=== PATIENT | female | born 1985 | race Caucasian/White ===

== ENCOUNTER 2016-08-11 18:06 | Observation (INO) | payer SELFPAY ==
[2016-08-11] MEDS ORDERED: NS 0.9% 1000 ML* 1,000 ML IV ONE (20:09)
[2016-08-11] MEDS ORDERED: ceFOXitin 2 GM IVPREMIX* 2 GM/50 ML BAG IVPB ONE (20:09)
[2016-08-11 20:10] LABS: Hematocrit 41 % (35-47); Hemoglobin 13.8 g/dl (12.0-16.0); Mean Corpuscular HGB Conc 33 g/dl (31-36); Mean Corpuscular Hemoglobin 31 pg (27-31); Mean Corpuscular Volume 91 fL (80-97); Mean Platelet Volume 8 um3 (7.4-10.4); Red Blood Count 4.52 10^6/ul (4.0-5.4); Red Cell Distribution Width 13 % (10.5-15); White Blood Count 20.1 10^3/ul (3.5-10.8)
[2016-08-11 20:11] LABS: Manual Entry Verification DOM0004; UR Preg Internal Control QC Line Present; Urine Bilirubin Negative (Negative); Urine Glucose Negative (Negative); Urine Nitrite Negative (Negative)
[2016-08-11 20:24] LABS: Albumin 4.6 g/dL (3.2-5.2); BUN/Creatinine Ratio 9.3 (8-20); Calcium 9.4 mg/dL (8.6-10.3); EGFR African American 99.6 (>60); EGFR Non-African American 77.5 (>60); Globulin 2.9 g/dL (2-4); Potassium 3.6 mmol/L (3.5-5.0); Total Protein 7.5 g/dL (6.4-8.9)
[2016-08-11] MEDS ORDERED: Ondansetron INJ* 2 MG/ML VIAL IV ONE (20:46)
[2016-08-11] MEDS ORDERED: Morphine INJ* 2 MG/ML 1 ML SYRINGE IV ONE (20:46)
[2016-08-11] MEDS ORDERED: Iohexol 300* (CONTRAST) 10 ML SDV IV ONE (22:38)
--- NOTE | 2016-08-11 23:05 | RAD ---
Indication: Right lower quadrant pain. Contrast: Administered 93.0 ml of OMNIPAQUE 300 mgi/ml CT of the abdomen and pelvis was performed after oral and IV contrast administration. Coronal and sagittal reconstructed images were obtained. Lung bases demonstrate no pleural fluid, nodules or masses. Heart is of normal size without evidence of pericardial effusion. Liver is normal in size. No focal lesions or intrahepatic ductal dilatation is noted. Spleen is normal in size. Pancreas demonstrates no mass or pancreatic duct dilatation. The common duct is not dilated. The gallbladder demonstrates no calcified gallstones. No pericholecystic fluid or wall thickening is identified. No adrenal masses noted. The kidneys demonstrate symmetric nephrograms. No hydronephrosis is noted. No dilated loops of bowel are noted. The uterus and ovaries are unremarkable. The urinary bladder is otherwise unremarkable. There is a tubular fluid-filled structure with infiltration of FAT overlying the right psoas muscle. This is retrocecal in nature and this is consistent with appendicitis. IMPRESSION: There is likely a tubular fluid-filled structure overlying the right psoas margin which likely represents appendicitis with infiltration of fat. This is retrocecal in nature. No other masses or fluid collections are noted.
[2016-08-11] MEDS ORDERED: Morphine INJ* 4 MG/ML 1 ML SYRINGE IV ONE (23:31)
[2016-08-12] MEDS ORDERED: Metoclopramide IV* 5 MG/ML 2 ML VIAL IV PRN (00:57)
[2016-08-12] MEDS ORDERED: Piperac/Tazob 3.375 gm in NS* 3.375 GM/100 ML BAG IVPB ONE (01:00)
[2016-08-12] MEDS: NS 0.9% 1000 ML* 1,000 ML IV SCH ×2 (01:40→10:20)
[2016-08-12] MEDS: Piperac/Tazob 3.375 gm in NS* 3.375 GM/100 ML BAG IVPB SCH ×2 (04:32→13:18)
[2016-08-12] MEDS: Morphine INJ* 2 MG/ML 1 ML SYRINGE IV PRN ×3 (04:37→10:25)
--- NOTE | 2016-08-12 09:02 | HP ---
DATE OF ADMISSION: 08/11/16 PATIENT OF: Dr. Salinas Rendon (dictated by NEETA Coulter) REASON FOR ADMISSION: Abdominal pain. HISTORY OF PRESENT ILLNESS: Freda is a pleasant 30-year-old female who was admitted to the hospital last night with one-day history of worsening abdominal pain. She notes that she was in her usual state of health until about 11 o' clock yesterday morning when she suddenly experienced worsening umbilical pain. She described it as a dull, aching pain with sharp episodes, initially localized to the periumbilical area and then gradually shifted to the right lower quadrant. She reports that the pain has gotten progressively worse with associated nausea and dry heaves, but denied any vomiting or changes in bowel habits. She went to the emergency room last night and had laboratory workup that revealed leukocytosis with white count of 20,000, as well as a CT scan consistent with acute appendicitis. Given her ongoing symptoms, she was admitted overnight for IV fluid hydration and antibiotics in anticipation to undergo an appendectomy on the following day. PAST MEDICAL HISTORY: Essentially unremarkable. She denies any history of heart, lung, liver or kidney disease. She notes having two episodes of spontaneous pneumothorax in the past, one of which needed a chest tube. However , she did not need any thoracic surgery to follow up. PAST SURGICAL HISTORY: None. CURRENT MEDICATIONS: She takes no medications at home. ALLERGIES: She denies any drug allergies. FAMILY HISTORY: Non-contributory. SOCIAL HISTORY: Patient is with two kids. 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 She is a former smoker who quit two years ago, and she drinks alcohol on occasions REVIEW OF SYSTEMS: See HPI; otherwise, negative. She denies any fever, chills or night sweats or recent weight loss. No headache, dizziness, blurred vision. No chest pain, shortness of breath or cough. She reports abdominal pain with associated nausea, but denies any vomiting or changes in the bowel habits. No dysuria, hematuria, or urinary frequency. PHYSICAL EXAMINATION GENERAL: She is a pleasant, healthy-appearing female who appears comfortable and in no acute distress or discomfort. VITAL SIGNS: Vitals reveal temperature of 97.9, pulse 57, respirations 16, blood pressure 91/46, and O2 sat of 98% on room air. HEENT: Sclerae anicteric. PERRLA. EOMs intact. Oropharynx is pink, moist, with no exudate. NECK: Supple. Trachea midline. No cervical adenopathy, thyromegaly, or JVD. LUNGS: Clear to auscultation bilaterally. HEART: Regular rate and rhythm. Normal S1 and S2 without rubs, murmurs, or gallops. BACK: With normal curvature. No CVA tenderness. BREAST EXAM: Deferred at this time. ABDOMEN: Soft and nondistended. Moderate right lower quadrant tenderness noted with focal tenderness noted at McBurney's point. There is slight guarding , but no rigidity, and there is also moderate rebound tenderness. There are no hernias, masses or hepatosplenomegaly. EXTREMITIES: Without cyanosis, clubbing, or edema. NEUROLOGIC: Grossly intact. RECTAL EXAM: Deferred at this time. LABORATORY DATA: As mentioned, patient had CBC last night with white count of 20,000, hemoglobin 13.8, hematocrit 41, and platelets 277. Chemistry - sodium 136, potassium 3.6, chloride 101, CO2 28, BUN 8, creatinine 0.8, and glucose 102. Her LFTs and lipase were essentially within normal limits. ACCESSORY DIAGNOSTIC DATA: Patient had a CT scan of the abdomen and pelvis that revealed a tubular structure, fluid filled, lying retrocecally, representing acute appendicitis with no other masses, abscess formation or fluid collection. ASSESSMENT: A 30-year-old female with signs and symptoms as well as CT scan findings consistent with acute appendicitis. PLAN: I went on and discussed with the patient the findings of her physical exam and CT scan report. The rationale, indications, risks and benefits of proceeding with a laparoscopic appendectomy were discussed in detail with her today. Risks include, but are not limited to infection, bleeding, or injury to adjacent structures. She seems to understand, and consents to go forth with the surgery to be performed later this morning. She has been NPO and received IV fluid and prophylactic antibiotics. She will be taken to the operating room later today in anticipation for a laparoscopic appendectomy. NEETA HUTCHINSON [id number]/[facility] #: [id number] [facility]ENTERHolland
[2016-08-12] MEDS ORDERED: Bupivacaine 0.25% EPI 200,000* 30 ML SDV ONE (11:38)
[2016-08-12] MEDS ORDERED: Propofol* 10 MG/ML 20 ML BTL IV PUSH ONE (12:11)
[2016-08-12] MEDS ORDERED: Lidocaine 2% PF* 5 ML VIAL ONE (12:11)
[2016-08-12] MEDS ORDERED: Succinylcholine* 20 MG/ML 10 ML VIAL ONE (12:11)
[2016-08-12] MEDS ORDERED: fentaNYL* 50 MCG/ML 2 ML VIAL (100 MCG VIAL) ONE ×4 (12:11→14:24)
[2016-08-12] MEDS ORDERED: Atropine 1MG/ML INJ* 1 ML VIAL ONE (12:48)
[2016-08-12] MEDS ORDERED: DiMENhydriNATE IV* 50 MG/ML VIAL IV PUSH PRN (12:50)
[2016-08-12] MEDS ORDERED: Ketorolac INJ* 30 MG/ML 1 ML VIAL IV PRN (12:50)
[2016-08-12] MEDS ORDERED: Ondansetron INJ* 2 MG/ML VIAL IV PRN (12:50)
[2016-08-12] MEDS ORDERED: Ketorolac INJ* 30 MG/ML 1 ML VIAL ONE (13:12)
[2016-08-12] MEDS: fentaNYL* 50 MCG/ML 2 ML VIAL (100 MCG VIAL) IV PRN ×5 (13:12→14:24)
--- NOTE | 2016-08-12 13:12 | SURGPN ---
Brief Operative Note - Surgery Procedures: Procedures CL FX REDUC-RADIUS/ULNA (12/14/94) INJECT/INFUSE NEC (01/31/13) 08/12/16 Op Note Pre-op dx: appendicitis Post-op dx: same Procedure: laparoscopic appendectomy Surgeon: Sebastian Asst: none EBL: 3 cc Complications: ~10 seconds of asystole upon insufflation of abdomen resolved with releasing the gas and re-insufflating to lesser pressure. SCDs on during case. Abx: on therapeutic Zosyn pre-op Pt. tolerated procedure well and was transferred to in a stable condition. RIAFostjaylin
[2016-08-12] MEDS ORDERED: oxyCODONE/Acetamin 5/325 MG* TAB ONE ×2 (13:32→13:55)
[2016-08-12] MEDS: oxyCODONE/Acetamin 5/325 MG* TAB PO PRN ×2 (13:33→13:56)
[2016-08-12] MEDS ORDERED: HYDROmorphone* 1 MG/ML 1 ML SYR ONE (14:57)
[2016-08-12] MEDS: HYDROmorphone* 1 MG/ML 1 ML SYR IV PRN ×2 (15:00→15:12)
[2016-08-12 15:47] VITALS: BP 100/55
--- NOTE | 2016-08-13 02:27 | OP ---
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 PRE-OP DIAGNOSIS: Appendicitis. POST-OP DIAGNOSIS: Appendicitis. OPERATIVE PROCEDURE: Laparoscopic appendectomy. INDICATIONS: Ms. Laird is a 30-year-old female who presented to the emergency room with signs and symptoms consistent with appendicitis and had this confirmed with CAT scan. [facility] and brought to the operating room. DESCRIPTION OF PROCEDURE: She was placed on the OR table in a supine position and given general ane sthesia. The abdomen was then prepped and draped in the usual sterile fashion. After infiltrating with local anesthetic, an incision was made in the infraumbilical area. Subcutaneous tissue was div ided bluntly. The fascia was grasped and incised and a 0 Biosyn stitch placed on either side of the fascial incision. A trocar was inserted into the abdomen and the abdomen was insufflated. At this point, it was noted that she had a few seconds of asystole on the monitor, so the abdomen was deflat ed. The port was removed and she was allowed to recover. She recovered adequately and the port was then reinserted and the abdomen again insufflated, but to a lesser pressure of 10 rather than 15. A n incision was made after infiltrating with local anesthetic in the suprapubic area and under direct visualization, a port was inserted here without difficulty. A second instrument port was inserted in the left flank after infiltrating with local anesthetic and under direct visualization. The cecu m was rotated medially with instruments and this exposed the acutely inflamed appendix. It was gras ped, its base was cleared, and an Endo GUIDO stapler was fired across the base of the appendix. A sec ond fire was fired across the mesoappendix. The appendix was placed into the EndoCatch bag and with drawn from the abdomen through the infraumbilical port site. A brief inspection of the rest of the abdomen revealed no obvious abnormalities. The liver and gallbladder appeared normal. The small an d large intestine that were seen appeared normal and the uterus appeared normal. A small amount of fluid in the pelvis was absorbed with 4x4 gauze, which was withdrawn from the abdomen. All ports we re then withdrawn under direct visualization and the previously placed 0 Biosyn was attempted to be used to close the fascia of the infraumbilical port site, but it broke, so another 0 Biosyn was used to close the fascia of the infraumbilical port site. 4-0 Biosyn was used to close the skin of all incisions. Steri-Strips were applied. All sponge and instrument counts were correct. The patient t olerated the procedure well and was transferred to Recovery in stable condition. [id number]/[facility] #: [id number]
--- NOTE | 2016-08-13 15:22 | ED ---
Elvira Feldman Alok, scribed for Zi Carrero MD on 08/11/16 at 2013 . Abdominal Pain/Female - HPI Summary HPI Summary: 30 y/o female presents to the ED with abd pain since 1100 while at work today. Pt states that pain began in periumbilical and radiated to RLQ throughout the day. Pain has been worsening throughout the day. Her pain is currently at a 3 out of 10 in severity and worsens with bumps/motion. Pt adds feelings of nausea earlier today which have subsided since. Pt denies any back pain, fever, diaphoresis, chills, or vomiting. 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 Pt last drank water a few minutes ago and had only eaten crackers today. 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 Pt just quit smoking tobacco 1 week ago. Pt denies any PSHx besides a chest tube 4 years ago for a collapsed lung. - History of Current Complaint Chief Complaint: EDAbdPain Stated Complaint: RT SIDED ABD PAIN Time Seen by Provider: 08/11/16 19:44 Hx Obtained From: Patient Hx Last Menstrual Period: IMPLANT, DOESN'T GET ?: No Onset/Duration: Gradual Onset, Lasting Hours, Still Present Timing: Constant Severity Initially: Moderate Severity Currently: Moderate Pain Intensity: 3 Pain Scale Used: 0-10 Numeric Location: Umbilical Radiates: Yes Radiates to: RLQ Character: Sharp Aggravating Factor(s): Movement Alleviating Factor(s): Nothing Associated Signs and Symptoms: Positive: Nausea. Negative: Diaphoresis, Fever, Back Pain, Urinary Symptoms, Vomiting Allergies/Adverse Reactions: Allergies Allergy/AdvReac Type Severity Reaction Status Date / Time No Known Allergies Allergy Verified 08/13/16 10:55 PMH/Surg Hx/FS Hx/Imm Hx Endocrine/Hematology History: Denies: Hx Anticoagulant Therapy, Hx Diabetes, Hx Thyroid Disease Cardiovascular History: Denies: Hx Congestive Heart Failure, Hx Hypertension, Hx Pacemaker/ICD Respiratory History: Denies: Hx Asthma, Hx Chronic Obstructive Pulmonary Disease (COPD) GI History: Denies: Hx Ulcer History: Denies: Hx Kidney Stones, Hx Renal Disease Sensory History: Reports: Hx Contacts or Glasses Denies: Hx Cataracts Opthamlomology History: Reports: Hx Contacts or Glasses Denies: Hx Cataracts Neurological History: Denies: Hx Dementia, Hx Seizures Psychiatric History: Reports: Hx Anxiety, Hx Eating Disorder, Hx Depression, Hx Inpatient Treatment, Hx Community Mental Health Tx, Hx Substance Abuse Denies: Hx of Violent Episodes Against Others - Surgical History Surgery Procedure, Year, and Place: CHEST TUBE Infectious Disease History: No Infectious Disease History: Denies: Hx Hepatitis, Hx Human Immunodeficiency Virus (HIV), Traveled Outside the [place] in Last 30 Days - Family History Known Family History: Negative: Blood Disorder - Social History Occupation: Unemployed Lives: With Family - Mother Alcohol Use: Rare Substance Use Type: Reports: None Substance Use Comment - Amount & Last Used: almost 6 months Hx Tobacco Use: Yes Smoking Status (MU): Light Every Day Tobacco Smoker Type: Cigarettes Amount Used/How Often: 1/2 PPD Review of Systems Negative: Fever, Chills, Skin Diaphoresis Negative: Erythema Negative: Sore Throat Negative: Chest Pain Negative: Shortness Of Breath, Cough Positive: Abdominal Pain - Umbilical and RLQ, Nausea. Negative: Vomiting Negative: dysuria, hematuria Negative: Myalgia, Edema, Other - Back Pain Negative: Rash Neurological: Other - Negative: Dizziness All Other Systems Reviewed And Are Negative: Yes Physical Exam - Summary Physical Exam Summary: Constitutional: Well-developed, Well-nourished, Alert. (-) Distressed Skin: Warm, Dry HENT: Normocephalic; Atraumatic Eyes: Conjunctiva normal Neck: Musculoskeletal ROM normal neck. (-) JVD, (-) Stridor, (-) Tracheal deviation Cardio: Rhythm regular, rate normal, Heart sounds normal; Intact distal pulses; The pedal pulses are 2+ and symmetric. Radial pulses are 2+ and symmetric. (-) Murmur Pulmonary/Chest wall: Effort normal. (-) Respiratory distress, (-) Wheezes, (-) Rales Abd: Soft, RLQ tenderness, (-) Distension, (-) Guarding, (-) Rebound Musculoskeletal: (-) Edema Lymph: (-) Cervical adenopathy Neuro: Alert, Oriented x3 Psych: Mood and affect Normal Triage Information Reviewed: Yes Vital Signs On Initial Exam: Initial Vitals Temp Pulse Resp BP Pulse Ox 98.3 F 70 20 101/55 100 08/11/16 18:12 08/11/16 18:12 08/11/16 18:12 08/11/16 18:12 08/11/16 18:12 Vital Signs Reviewed: Yes - [place]rod Coma Scale Coma Scale Total: 15 Diagnostics - Vital Signs Vital Signs Temp Pulse Resp BP Pulse Ox 08/11/16 19:38 98.4 F 66 18 108/65 100 08/11/16 18:12 98.3 F 70 20 101/55 100 - Laboratory Lab Results: Lab Results 08/11/16 08/11/16 Range/Units 20:00 20:00 WBC 20.1 H (3.5-10.8) 10^3/ul RBC 4.52 (4.0-5.4) 10^6/ul Hgb 13.8 (12.0-16.0) g/dl Hct 41 (35-47) % MCV 91 (80-97) fL MCH 31 (27-31) pg MCHC 33 (31-36) g/dl RDW 13 (10.5-15) % Plt Count 277 (150-450) 10^3/ul MPV 8 (7.4-10.4) um3 Neut % (Auto) 83.4 H (38-83) % Lymph % (Auto) 11.0 L (25-47) % [place] % (Auto) 4.8 (1-9) % Eos % (Auto) 0.4 (0-6) % Baso % (Auto) 0.4 (0-2) % Absolute Neuts (auto) 16.7 H (1.5-7.7) 10^3/ul Absolute Lymphs (auto) 2.2 (1.0-4.8) 10^3/ul Absolute Monos (auto) 1.0 H (0-0.8) 10^3/ul Absolute Eos (auto) 0.1 (0-0.6) 10^3/ul Absolute Basos (auto) 0.1 (0-0.2) 10^3/ul Absolute Nucleated RBC 0 10^3/ul Nucleated RBC % 0 Urine Color Yellow Urine Appearance Clear Urine pH 6.0 (5-9) Ur Specific [place] 1.018 (1.010-1.030) Urine Protein Negative (Negative) Urine Ketones 2+ H (Negative) Urine Blood Negative (Negative) Urine Nitrate Negative (Negative) Urine Bilirubin Negative (Negative) Urine Urobilinogen Negative (Negative) Ur Leukocyte Esterase Negative (Negative) Urine Glucose Negative (Negative) Urine Ascorbic Acid Not Reportable Urine Test Negative (Negative) Result Diagrams: 08/11/16 20:00 08/11/16 20:00 Lab Statement: Any lab studies that have been ordered have been reviewed, and results considered in the medical decision making process. - CT Abd/Pel CT CT Interpretation: Positive (See Comments) - IMPRESSION: There is likely a tubular fluid-filled structure overlying the right psoas margin which likely represents appendicitis with infiltration of fat. This is retrocecal in nature. No other masses or fluid collections are noted. CT Interpretation Completed By: Radiologist Re-Evaluation - Re-Evaluation First Eval Re-Evaluation Time: 23:31 Change: Unchanged Abdominal Pain Fem Course/Dx - Diagnoses Provider Diagnoses: Acute appendicitis - Provider Notifications Discussed Care Of Patient With: Dr Rendon (Surgery) @ 2011 - Was made aware of Pt condition and suspicion for appendicitis. Dr Rendon agrees with plan of action to follow through with imaging and labs. Dr Rendon (Surgery) @ 2329 - Will admit pt for acute appendicitis - Critical Care Time Critical Care Time: 30-74 min - 35 minutes Discharge - Discharge Plan Condition: Good Disposition: ADMITTED TO [facility] The documentation as recorded by the Elvira easley Alok accurately reflects the service I personally performed and the decisions made by , Zi Carrero MD.
== END 2016-08-12 15:48 | disposition home or self-care (01) ==
LOC: ED 18:06 → SSU 23:46
PROVIDERS: ADMIT Surgery; ATTEND Surgery
PROC: 0DTJ4ZZ Resection of Appendix, Percutaneous Endoscopic Approach (ICD-10-PCS; principal; 2016-08-11)
DX: K35.80 Unspecified acute appendicitis (principal); Z87.891 Personal history of nicotine dependence
CPT/HCPCS: 36415; 74177; 80053; 81003; 81025; 83690; 85025; 88304; 96365; 96367; 96375; 96376; 99291; 99406; A9270-GY; C1776; G0378; J0330; J0461; J0694; J1170; J1885; J2270; J2405; J2543; J2704; J3010; Q9967

== ENCOUNTER 2016-08-13 10:38 | Emergency (ER) | payer SELFPAY ==
[2016-08-13] MEDS ORDERED: Ondansetron INJ* 2 MG/ML VIAL IV ONE ×2 (11:27→14:35)
[2016-08-13] MEDS ORDERED: HYDROmorphone INJ* 1 MG/ML CARPUJECT SYRINGE IV ONE (11:27)
[2016-08-13] MEDS ORDERED: NS 0.9% 1000 ML* 1,000 ML IV ONE (11:27)
[2016-08-13 11:48] LABS: Hematocrit 38 % (35-47); Hemoglobin 12.9 g/dl (12.0-16.0); Mean Corpuscular HGB Conc 34 g/dl (31-36); Mean Corpuscular Hemoglobin 31 pg (27-31); Mean Corpuscular Volume 91 fL (80-97); Mean Platelet Volume 8 um3 (7.4-10.4); Red Cell Distribution Width 13 % (10.5-15); White Blood Count 11.3 10^3/ul (3.5-10.8)
[2016-08-13 12:04] LABS: Albumin 3.9 g/dL (3.2-5.2); BUN/Creatinine Ratio 12.7 (8-20); C Reactive Protein 16.7 mg/L (< 5.00); Calcium 8.8 mg/dL (8.6-10.3); EGFR African American 124.3 (>60); EGFR Non-African American 96.7 (>60); Globulin 2.7 g/dL (2-4); Potassium 3.8 mmol/L (3.5-5.0); Total Bilirubin 0.8 mg/dL (0.2-1.0); Total Protein 6.6 g/dL (6.4-8.9)
[2016-08-13] MEDS ORDERED: oxyCODONE/Acetamin 5/325 MG* TAB PO ONE (14:05)
[2016-08-13 14:22] VITALS: BP 108/61
--- NOTE | 2016-08-13 15:33 | ED ---
Stacey Feldman Janilya, scribed for Juan F Conn MD on 08/13/16 at 1149 . Abdominal Pain/Female - HPI Summary HPI Summary: A 30 y/[facility] w/ a gradual onset of constant abd pain and vomiting since yesterday. Pt states she had vomited her pain medication. Pt reports she had appendectomy on August 11, 2016. According to the report of the procedure, pt had a complication: 10 sec of asystole. In addition , pt states she has nausea. She cannot keep anything down. Pt has not moved her bowels or passed gas. She states there was a sensation of "something popping in stomach". - History of Current Complaint Chief Complaint: EDAbdPain Stated Complaint: SX -1DAY / VOMITING Time Seen by Provider: 08/13/16 11:18 Hx Obtained From: Patient Hx Last Menstrual Period: IMPLANT, DOESN'T GET Onset/Duration: Gradual Onset, Lasting Days, Still Present Timing: Constant Severity Initially: Moderate Severity Currently: Moderate Pain Intensity: 6 Pain Scale Used: 0-10 Numeric Location: Diffuse Radiates: No Character: Dull Aggravating Factor(s): Nothing Alleviating Factor(s): Nothing Associated Signs and Symptoms: Positive: Nausea, Vomiting Allergies/Adverse Reactions: Allergies Allergy/AdvReac Type Severity Reaction Status Date / Time No Known Allergies Allergy Verified 08/13/16 10:55 PMH/Surg Hx/FS Hx/Imm Hx Previously Healthy: Yes Endocrine/Hematology History: Denies: Hx Anticoagulant Therapy, Hx Diabetes, Hx Thyroid Disease Cardiovascular History: Denies: Hx Congestive Heart Failure, Hx Hypertension, Hx Pacemaker/ICD Respiratory History: Reports: Other Respiratory Problems/Disorders - 3 spont. pneumothorax w/chest tube Denies: Hx Asthma, Hx Chronic Obstructive Pulmonary Disease (COPD) GI History: Denies: Hx Ulcer History: Denies: Hx Dialysis, Hx Kidney Stones, Hx Renal Disease Sensory History: Reports: Hx Contacts or Glasses Denies: Hx Cataracts, Hx Hearing Aid Opthamlomology History: Reports: Hx Contacts or Glasses Denies: Hx Cataracts Neurological History: Denies: Hx Dementia, Hx Seizures Psychiatric History: Reports: Hx Anxiety, Hx Eating Disorder, Hx Depression, Hx Inpatient Treatment, Hx Community Mental Health Tx, Hx Substance Abuse Denies: Hx of Violent Episodes Against Others - Surgical History Surgery Procedure, Year, and Place: CHEST TUBE Hx Anesthesia Reactions: Yes - States woke up in the middle of getting wisdom teeth extracted Infectious Disease History: No Infectious Disease History: Denies: Hx Hepatitis, Hx Human Immunodeficiency Virus (HIV), Traveled Outside the [place] in Last 30 Days - Family History Known Family History: Negative: Blood Disorder - Social History Alcohol Use: Rare Substance Use Type: Reports: None Substance Use Comment - Amount & Last Used: almost 6 months Hx Tobacco Use: Yes Smoking Status (MU): Light Every Day Tobacco Smoker Type: Cigarettes Amount Used/How Often: 1/2 PPD Review of Systems Positive: Abdominal Pain, Vomiting, Nausea All Other Systems Reviewed And Are Negative: Yes Physical Exam Triage Information Reviewed: Yes Vital Signs On Initial Exam: Initial Vitals Temp Pulse Resp BP Pulse Ox 98.3 F 72 16 118/58 100 08/13/16 10:55 08/13/16 10:55 08/13/16 10:55 08/13/16 10:55 08/13/16 10:55 Vital Signs Reviewed: Yes Appearance: Positive: Well-Appearing, No Pain Distress Skin: Positive: Warm, Skin Color Reflects Adequate Perfusion, Dry, Other - Wound clean Head/Face: Positive: Normal Head/Face Inspection Eyes: Positive: Normal ENT: Positive: Normal ENT inspection Neck: Positive: Supple, Nontender Respiratory/Lung Sounds: Positive: Clear to Auscultation, Breath Sounds Present Cardiovascular: Positive: RRR Abdomen Description: Positive: Soft, Other: - Moderate tenderness. Negative: Nontender Bowel Sounds: Positive: Present, Hyperactive - with high pitched sounds Musculoskeletal: Positive: Normal Neurological: Positive: Normal Psychiatric: Positive: Affect/Mood Appropriate - Carrie Coma Scale Coma Scale Total: 15 Diagnostics - Vital Signs Vital Signs Temp Pulse Resp BP Pulse Ox 08/13/16 10:55 98.3 F 72 16 118/58 100 - Laboratory Lab Results: Lab Results 08/13/16 08/13/16 Range/Units 11:35 11:35 WBC 11.3 H (3.5-10.8) 10^3/ul RBC 4.20 (4.0-5.4) 10^6/ul Hgb 12.9 (12.0-16.0) g/dl Hct 38 (35-47) % MCV 91 (80-97) fL MCH 31 (27-31) pg MCHC 34 (31-36) g/dl RDW 13 (10.5-15) % Plt Count 244 (150-450) 10^3/ul MPV 8 (7.4-10.4) um3 Neut % (Auto) 76.9 (38-83) % Lymph % (Auto) 16.8 L (25-47) % [place] % (Auto) 4.9 (1-9) % Eos % (Auto) 0.8 (0-6) % Baso % (Auto) 0.6 (0-2) % Absolute Neuts (auto) 8.7 H (1.5-7.7) 10^3/ul Absolute Lymphs (auto) 1.9 (1.0-4.8) 10^3/ul Absolute Monos (auto) 0.6 (0-0.8) 10^3/ul Absolute Eos (auto) 0.1 (0-0.6) 10^3/ul Absolute Basos (auto) 0.1 (0-0.2) 10^3/ul Absolute Nucleated RBC 0 10^3/ul Nucleated RBC % 0 Sodium 135 (133-145) mmol/L Potassium 3.8 (3.5-5.0) mmol/L Chloride 105 (101-111) mmol/L Carbon Dioxide 21 L (22-32) mmol/L Anion Gap 9 (2-11) mmol/L BUN 9 (6-24) mg/dL Creatinine 0.71 (0.51-0.95) mg/dL Est GFR ( Amer) 124.3 (>60) Est GFR (Non-Af Amer) 96.7 (>60) BUN/Creatinine Ratio 12.7 (8-20) Glucose 72 (70-100) mg/dL Calcium 8.8 (8.6-10.3) mg/dL Total Bilirubin 0.80 (0.2-1.0) mg/dL AST 15 (13-39) U/L ALT 12 (7-52) U/L Alkaline Phosphatase 37 (34-104) U/L C-Reactive Protein 16.70 H (< 5.00) mg/L Total Protein 6.6 (6.4-8.9) g/dL Albumin 3.9 (3.2-5.2) g/dL Globulin 2.7 (2-4) g/dL Albumin/Globulin Ratio 1.4 (1-3) Result Diagrams: 08/13/16 11:35 08/13/16 11:35 Lab Statement: Any lab studies that have been ordered have been reviewed, and results considered in the medical decision making process. Abdominal Pain Fem Course/Dx - Course Course Of Treatment: Freda Laird presented with increased nausea aafter surgery yesterday. She also C/O incresed pain but has been unable to keep PO meds down. He W/U was benign here and she felt improved with fluids and antiemetics and I will add Zofran ODT to her outpatient meds. - Diagnoses Provider Diagnoses: Postoperative nausea - Provider Notifications Discussed Care Of Patient With: Dr. Cortes (surgery) at 1401: agrees to evalute pt. Discharge - Discharge Plan Condition: Stable Disposition: HOME Prescriptions: Ondansetron ODT TAB* [Zofran Odt TAB*] 4 mg PO Q6H PRN #20 tab.odt PRN Reason: Nausea/Vomiting Referrals: Higinio Valdez MD [Primary Care Provider] - 2 Days Additional Instructions: Please follow up with your primary care provider in 2 days. The documentation as recorded by the Stacey easley Janilya accurately reflects the service I personally performed and the decisions made by me, Juan F Conn MD.
== END 2016-08-13 15:12 | disposition home or self-care (01) ==
LOC: ED 10:38
DX: R11.2 Nausea with vomiting, unspecified (principal); R10.9 Unspecified abdominal pain; F17.210 Nicotine dependence, cigarettes, uncomplicated; Z98.890 Other specified postprocedural states
CPT/HCPCS: 36415; 80053; 85025; 86140; 96374; 96375; 99282; A9270-GY; J1170; J2405

== ENCOUNTER 2017-11-05 10:07 | Emergency (ER) | payer SELFPAY ==
[2017-11-05 10:18] VITALS: BP 135/94
--- NOTE | 2017-11-05 10:46 | UC ---
Skin Complaint HPI - HPI Summary HPI Summary: patient was hiking and ran into some poison rere - History of Current Complaint Chief Complaint: UCSkin Time Seen by Provider: 11/05/17 10:35 Stated Complaint: RASH Hx Obtained From: Patient Hx Last Menstrual Period: implanon ?: No Onset/Duration: Sudden Onset, Lasting Days Skin Exposure Onset/Duration: Days Ago Timing: Constant Onset Severity: Moderate Current Severity: Moderate Pain Intensity: 0 Location: Diffuse Character: Swelling, Pruritus, Hives, Redness Aggravating Factor(s): Clothing, Humidity Alleviating Factor(s): Nothing Associated Signs & Symptoms: Positive: Rash Related History: Possible Reaction to: Environmental Exposure - Allergy/Home Medications Allergies/Adverse Reactions: Allergies Allergy/AdvReac Type Severity Reaction Status Date / Time No Known Allergies Allergy Verified 11/05/17 10:18 Home Medications: Home Medications diPHENhydraMINE CREAM 2%(NF) [Benadryl X-Strength CREAM 2 % (NF)] 1 applic TOPICAL TID 11/05/17 [History Confirmed 11/05/17] Review of Systems Constitutional: Negative Skin: Rash Eyes: Negative ENT: Negative Respiratory: Negative Cardiovascular: Negative Gastrointestinal: Negative Genitourinary: Negative Motor: Negative Neurovascular: Negative Musculoskeletal: Negative Neurological: Negative Psychological: Negative Is Patient Immunocompromised?: No All Other Systems Reviewed And Are Negative: Yes PMH/Surg Hx/FS Hx/Imm Hx Previously Healthy: Yes Other History Of: Negative For: Anticoagulant Therapy - Surgical History Surgical History: Yes Surgery Procedure, Year, and Place: CHEST TUBE - Family History Known Family History: Negative: Cardiac Disease, Blood Disorder - Social History Alcohol Use: Occasionally Substance Use Type: None Substance Use Comment - Amount & Last Used: almost 6 months Smoking Status (MU): Light Every Day Tobacco Smoker Type: Cigarettes Amount Used/How Often: 1/2 PPD - Immunization History Most Recent Influenza Vaccination: 6 years ago Most Recent Tetanus Shot: Pt believes 2 years ago Most Recent Pneumonia Vaccination: none Physical Exam Triage Information Reviewed: Yes Appearance: Well-Nourished, Ill-Appearing, Pain Distress Vital Signs: Initial Vital Signs Temp 99.8 F 11/05/17 10:15 Pulse 93 11/05/17 10:15 Resp 18 11/05/17 10:15 BP 135/94 11/05/17 10:15 Pulse Ox 100 11/05/17 10:15 Vital Signs Reviewed: Yes Eye Exam: Normal ENT Exam: Normal Dental Exam: Normal Neck exam: Normal Respiratory Exam: Normal Cardiovascular Exam: Normal Abdominal Exam: Normal Musculoskeletal Exam: Normal Neurological Exam: Normal Psychological Exam: Normal Skin: Positive: rashes Course/Dx - Course Course Of Treatment: hx obtained, exam performed, meds reviewed, treated for poison rere - Differential Diagnoses - Skin Complaint Differential Diagnoses: Lymphangitis, Poison Rere, Poison [place], Urticaria - Diagnoses Provider Diagnoses: poison rere Discharge - Sign-Out/Discharge Documenting (check all that apply): Discharge/Admit/Transfer - Discharge Plan Condition: Stable Disposition: HOME Prescriptions: predniSONE TAB* [Deltasone 20 MG TAB*] 20 mg PO DAILY #18 tab Triamcinolone 0.1% OINT(NF) [Kenalog 0.1% OINT(NF)] 1 applic TOPICAL BID #2 tube Patient Education Materials: Poison Rere (ED) Forms: *Work Release Referrals: Higinio Valdez MD [Primary Care Provider] - Additional Instructions: 1. use the medication as prescribed. 2. Keep area covered. - Billing Disposition and Condition Condition: STABLE Disposition: Home
== END 2017-11-05 10:50 | disposition home or self-care (01) ==
LOC: UCEAST 10:07
DX: L23.7 Allergic contact dermatitis due to plants, except food (principal); F17.210 Nicotine dependence, cigarettes, uncomplicated
CPT/HCPCS: 99212; G0463

== ENCOUNTER 2017-11-07 16:01 | Emergency (ER) | payer SELFPAY ==
[2017-11-07 16:46] VITALS: BP 0/0
--- NOTE | 2017-11-07 16:54 | UC ---
Skin Complaint HPI - HPI Summary HPI Summary: 32 yo female presents with rash. She was seen 2 days ago and diagnosed with poison rere. She has been taking the prednisone and using the steroid cream as rx 'd. Today she presents with increased pain and she noticed some lesions in her groin. She mentions that shortly after the hike with her boyfriend..before lesions appearing.. they went home and had intercourse. This involved him performing oral sex. He ended up developing poison rere rash/lesions on his face and neck. Pt is now reporting lesions in her groin and on her labia that are very painful. She also thinks the prednisone has given her a yeast infection as she has noticed some thick white discharge. Denies fever, chills, open wounds, bleeding, or drainage from any of the sites. - History of Current Complaint Chief Complaint: UCSkin Time Seen by Provider: 11/07/17 16:42 Stated Complaint: RASHES Hx Obtained From: Patient Hx Last Menstrual Period: implanon Onset/Duration: Sudden Onset Onset Severity: Mild Current Severity: Moderate Pain Intensity: 5 Pain Scale Used: 0-10 Numeric Location: Diffuse - Allergy/Home Medications Allergies/Adverse Reactions: Allergies Allergy/AdvReac Type Severity Reaction Status Date / Time No Known Allergies Allergy Verified 11/07/17 16:46 Review of Systems Constitutional: Negative Skin: Rash Eyes: Negative ENT: Negative Respiratory: Negative Cardiovascular: Negative Gastrointestinal: Negative Neurovascular: Negative Neurological: Negative Psychological: Negative All Other Systems Reviewed And Are Negative: Yes PMH/Surg Hx/FS Hx/Imm Hx - Additional Past Medical History Additional PMH: None Previously Healthy: Yes Other History Of: Negative For: Anticoagulant Therapy - Surgical History Surgical History: Yes Surgery Procedure, Year, and Place: CHEST TUBE - Family History Known Family History: Positive: None Negative: Cardiac Disease, Blood Disorder - Social History Occupation: Employed Full-time Lives: With Family Alcohol Use: Occasionally Substance Use Type: None Substance Use Comment - Amount & Last Used: almost 6 months Smoking Status (MU): Light Every Day Tobacco Smoker Type: Cigarettes Amount Used/How Often: 1/2 PPD - Immunization History Most Recent Influenza Vaccination: 6 years ago Most Recent Tetanus Shot: Pt believes 2 years ago Most Recent Pneumonia Vaccination: none Physical Exam - Summary Physical Exam Summary: GENERAL: NAD. WDWN. No pain distress. SKIN: B/L arms with scattered linear mildly erythematous blisters. Mildly TTP. No streaking, bleeding, or drainage. NECK: Supple. Nontender. No lymphadenopathy. CHEST: No accessory muscle use. Breathing comfortably and in no distress. CV: RRR. Without m/r/g. NEURO: Alert. CN II-XII grossly intact. PSYCH: Age appropriate behavior. Triage Information Reviewed: Yes Vital Signs: Initial Vital Signs Temp 98.9 F 11/07/17 16:39 Pulse 62 11/07/17 16:39 Resp 18 11/07/17 16:39 BP 0/0 11/07/17 16:39 Pulse Ox 100 11/07/17 16:39 Course/Dx - Course Course Of Treatment: She refused pelvic/gential exam today. Will change her prednisone taper and have her take 40mg daily for 4 days. Also rx for benadryl cream and norco TID with focus on use at bedtime. F/u prn. istop: Reference #: [id number] - Diagnoses Provider Diagnoses: Poison rere Discharge - Sign-Out/Discharge Documenting (check all that apply): Discharge/Admit/Transfer - Discharge Plan Condition: Stable Disposition: HOME Prescriptions: diPHENhydraMINE 2% CREAM(NF) [Benadryl 2% CREAM (NF)] 1 applic TOPICAL TID #1 tube Fluconazole 150 MG (NF) [Diflucan 150 mg (NF)] 150 mg PO ONCE #2 tab HYDROcodone/ACETAMIN 5-325 MG* [[place] 5-325 TAB*] 1 tab PO Q8H PRN #9 tab MDD 3 PRN Reason: Pain Patient Education Materials: Poison Rere (ED) Referrals: Higinio Valdez MD [Primary Care Provider] - Additional Instructions: If you develop a fever, shortness of breath, chest pain, new or worsening symptoms - please call your PCP or go to the ED. 1) Take 40mg of prednisone daily until gone - Billing Disposition and Condition Condition: STABLE Disposition: Home
== END 2017-11-07 17:18 | disposition home or self-care (01) ==
LOC: UCEAST 16:01
DX: L23.7 Allergic contact dermatitis due to plants, except food (principal); N89.8 Other specified noninflammatory disorders of vagina; F17.210 Nicotine dependence, cigarettes, uncomplicated
CPT/HCPCS: 99211; G0463

== ENCOUNTER 2017-12-16 05:31 | Emergency (ER) | payer SELFPAY ==
[2017-12-16] MEDS ORDERED: Ketorolac INJ* 30 MG/ML 1 ML VIAL IM ONE (05:46)
--- NOTE | 2017-12-16 05:52 | ED ---
Lower Extremity - HPI Summary HPI Summary: 32-year-old female presents with lower back pain and hip pain since yesterday. States she climbed a tree and fell out of the tree and landed on her tailbone. She states she previous broke her tailbone when she younger. She denies any numbness or tingling. She is able to ambulate without difficulty. No numbness or tingling. No other injury. No head injury. No loss consciousness. No ankle or heel pain. She has no medical conditions. Took ibuprofen with minimal relief last night. She states she cant sleep due to the pain. - History of Current Complaint Chief Complaint: EDBackInjuryPain Stated Complaint: BACK PAIN Time Seen by Provider: 12/16/17 05:39 Hx Last Menstrual Period: implanon Pain Intensity: 10 - Allergies/Home Medications Allergies/Adverse Reactions: Allergies Allergy/AdvReac Type Severity Reaction Status Date / Time No Known Allergies Allergy Verified 12/16/17 05:46 PMH/Surg Hx/FS Hx/Imm Hx Endocrine/Hematology History: Denies: Hx Anticoagulant Therapy, Hx Diabetes, Hx Thyroid Disease Cardiovascular History: Denies: Hx Congestive Heart Failure, Hx Hypertension, Hx Pacemaker/ICD Respiratory History: Reports: Other Respiratory Problems/Disorders - 3 spont. pneumothorax w/chest tube Denies: Hx Asthma, Hx Chronic Obstructive Pulmonary Disease (COPD) GI History: Denies: Hx Ulcer History: Denies: Hx Dialysis, Hx Kidney Stones, Hx Renal Disease Sensory History: Reports: Hx Contacts or Glasses Denies: Hx Cataracts, Hx Hearing Aid Opthamlomology History: Reports: Hx Contacts or Glasses Denies: Hx Cataracts Neurological History: Denies: Hx Dementia, Hx Seizures Psychiatric History: Reports: Hx Anxiety, Hx Eating Disorder, Hx Depression, Hx Inpatient Treatment, Hx Community Mental Health Tx, Hx Substance Abuse Denies: Hx of Violent Episodes Against Others - Surgical History Surgery Procedure, Year, and Place: CHEST TUBE Hx Anesthesia Reactions: Yes - States woke up in the middle of getting wisdom teeth extracted Infectious Disease History: No Infectious Disease History: Denies: Hx Hepatitis, Hx Human Immunodeficiency Virus (HIV), Traveled Outside the [place] in Last 30 Days - Family History Known Family History: Positive: None Negative: Cardiac Disease, Blood Disorder - Social History Alcohol Use: Occasionally Substance Use Type: Reports: None Substance Use Comment - Amount & Last Used: almost 6 months Hx Tobacco Use: Yes Smoking Status (MU): Light Every Day Tobacco Smoker Type: Cigarettes Amount Used/How Often: 1/2 PPD Review of Systems Negative: Fever Negative: Chest Pain Negative: Shortness Of Breath Positive: Myalgia - lower back pain, tailbone, right hip All Other Systems Reviewed And Are Negative: Yes Physical Exam Triage Information Reviewed: Yes Vital Signs On Initial Exam: Initial Vitals Temp Pulse Resp BP Pulse Ox 98.6 F 65 12 115/76 97 12/16/17 05:39 12/16/17 05:39 12/16/17 05:39 12/16/17 05:39 12/16/17 05:39 Vital Signs Reviewed: Yes Appearance: Positive: Well-Appearing Skin: Positive: Warm, Dry Head/Face: Positive: Normal Head/Face Inspection Eyes: Positive: Normal, Conjunctiva Clear ENT: Positive: Pharynx normal Respiratory/Lung Sounds: Positive: Clear to Auscultation, Breath Sounds Present Cardiovascular: Positive: Normal, RRR Abdomen Description: Positive: Nontender, Soft Bowel Sounds: Positive: Present Musculoskeletal: Positive: Limited @ - back, right leg, Other - tenderness lower back, tailbone, right hip, good pulses, sensation grossly intact Neurological: Positive: Normal Psychiatric: Positive: Normal Diagnostics - Vital Signs Vital Signs Temp Pulse Resp BP Pulse Ox 12/16/17 05:39 98.6 F 65 12 115/76 97 - Laboratory Lab Statement: Any lab studies that have been ordered have been reviewed, and results considered in the medical decision making process. - CT pelvis, lumbar CT Interpretation: No Acute Changes CT Interpretation Completed By: Radiologist Lower Extremity Course/Dx - Course Course Of Treatment: 32-year-old female presents with lower back pain and hip pain since yesterday. States she climbed a tree and fell out of the tree and landed on her tailbone. She states she previous broke her tailbone when she younger. She denies any numbness or tingling. She is able to ambulate without difficulty. No numbness or tingling. No other injury. No head injury. No loss consciousness. No ankle or heel pain. She has no medical conditions. Took ibuprofen with minimal relief last night. She states she cant sleep due to the pain. On exam tenderness to lower back and right hip. Neurovascular intact. CT shows no fx. told to continue tyenlol and ibuprofen and told to get doughnut pillow. patient understand and agrees with plan. - Diagnoses Differential Diagnosis/HQI/PQRI: Positive: Contusion, Fracture (Closed), Sprain Provider Diagnoses: Right hip pain, Back pain, Injury of coccyx Discharge - Sign-Out/Discharge Documenting (check all that apply): Patient Departure - Discharge Plan Condition: Good Disposition: HOME Patient Education Materials: Coccyx Injury (ED) Forms: *Work Release Referrals: Higinio Valdez MD [Primary Care Provider] - Additional Instructions: Take Tylenol or ibuprofen every [address] ice on area Use doughnut pillow to avoid putting pressure on area Increase fiber intake Follow up with primary in 5 days Return to ED if develop any new or worsening symptoms - Billing Disposition and Condition Condition: GOOD Disposition: Home
[2017-12-16] MEDS ORDERED: Acetaminophen TAB* 325 MG PO ONE (06:38)
--- NOTE | 2017-12-16 07:43 | RAD ---
INDICATION: Fall from tree. Possible pelvic injury . COMPARISON: None TECHNIQUE: Noncontrast axial source images were obtained from the iliac crests through the symphysis pubis. FINDINGS: There are no CT abnormalities of the bony pelvis. The uterus and adnexa appear normal. No free fluid or adenopathy is seen. The noncontrast CT appearance of the bowel is unremarkable. The superficial soft tissues appear normal. The bladder appears normal. IMPRESSION: NEGATIVE EXAMINATION.
--- NOTE | 2017-12-16 07:45 | RAD ---
INDICATION: Fall. Back pain COMPARISON: CT abdomen pelvis August 11, 2016 TECHNIQUE: Noncontrast axial source images was performed from the thoracolumbar junction to the sacrum. Coronal and and sagittal reformatted images were generated. FINDINGS: Vertebrae: There is no fracture or acute focal bony lesion. There is minor anterior vertebral spurring at L3 Alignment: There is a minor scoliotic deformity. Central Canal: There are no significant CT abnormalities of the central canal or foramina. MR imaging is a more sensitive method to evaluate the canal and foramina. Intervertebral disc spaces: The disc spaces are maintained. Soft tissues: The paravertebral soft tissues are normal. Other: None IMPRESSION: MINOR SCOLIOSIS AND BONY SPUR FORMATION. NO ACUTE FINDINGS.
[2017-12-16 07:54] VITALS: BP 101/68
== END 2017-12-16 07:57 | disposition home or self-care (01) ==
LOC: ED 05:31
DX: M25.551 Pain in right hip (principal); S39.92XA Unspecified injury of lower back, initial encounter; M54.5 Low back pain; W14.XXXA Fall from tree, initial encounter; Y92.9 Unspecified place or not applicable; F17.210 Nicotine dependence, cigarettes, uncomplicated
CPT/HCPCS: 72131; 72192; 96372; 99283; A9270-GY; J1885

== ENCOUNTER 2018-04-20 13:54 | Emergency (ER) | payer OTHER ==
[2018-04-20 14:46] VITALS: BP 123/73
--- NOTE | 2018-04-20 15:18 | UC ---
Dental HPI - HPI Summary HPI Summary: 32 y/o female presents to the urgent care c/o Rt upper molar pain and mild swelling since last night. Pt states she has caries in that molar. She couldn' t get an appt w/ her dentist today. pain is 8/10 w/ chewing radiating to the Rt ear. pt has not taking any medication to alleviate symptoms. Pt denies fever, trismus, GIRARD, URI, SOB, chest pain, abdominal pain, N/v/D. r - History of Current Complaint Chief Complaint: UCDentalProblem Stated Complaint: TOOTHACHE Time Seen by Provider: 04/20/18 15:15 Hx Obtained From: Patient Hx Last Menstrual Period: 03/2017 ?: No Onset/Duration: Gradual Onset, Lasting Days - 1 day, Still Present, Worse Since - today Severity: Moderate Pain Intensity: 8 Pain Scale Used: 0-10 Numeric Aggravating Factor(s): Chewing Alleviating Factor(s): Nothing Related History: Swelling - mild - Allergies/Home Medications Allergies/Adverse Reactions: Allergies Allergy/AdvReac Type Severity Reaction Status Date / Time No Known Allergies Allergy Verified 04/20/18 14:46 PMH/Surg Hx/FS Hx/Imm Hx Previously Healthy: Yes - Pt denies PMHX Other History Of: Negative For: Anticoagulant Therapy - Surgical History Surgical History: Yes Surgery Procedure, Year, and Place: CHEST TUBE. appendectomy - Family History Known Family History: Positive: Hypertension, Diabetes Negative: Cardiac Disease, Blood Disorder - Social History Occupation: Employed Full-time Lives: With Family Alcohol Use: Occasionally Substance Use Type: None Substance Use Comment - Amount & Last Used: almost 6 months Smoking Status (MU): Light Every Day Tobacco Smoker Type: Cigarettes Amount Used/How Often: 3 cig/day Household Exposure Type: Cigarettes - Immunization History Most Recent Influenza Vaccination: 6 years ago Most Recent Tetanus Shot: Pt believes 2 years ago Most Recent Pneumonia Vaccination: none Review of Systems All Other Systems Reviewed And Are Negative: Yes Constitutional: Positive: Negative Skin: Positive: Negative Eyes: Positive: Negative ENT: Positive: Dental Pain - RT upper jaw Respiratory: Positive: Negative Cardiovascular: Positive: Negative Gastrointestinal: Positive: Negative Genitourinary: Positive: Negative Motor: Positive: Negative Neurovascular: Positive: Negative Musculoskeletal: Positive: Negative Neurological: Positive: Negative Psychological: Positive: Negative Is Patient Immunocompromised?: No Physical Exam - Summary Physical Exam Summary: Vital Signs Reviewed: Yes General: Well-Appearing, Well-Nourished female sitting in the examining table w /o any respiratory or pain distress Eyes: Positive: Conjunctiva Clear - PERRLA, EOMI, ENT: Positive: Normal ENT inspection, Hearing grossly normal, Pharynx normal, TMs normal - B/L external ear canals clear,. Negative: Tonsillar swelling, Tonsillar exudate, Trismus Dental: Positive: Gross Decay/Caries w/ molars #3 , Abscess @ -mild gingival swelling and erythema, tender to percussion. involves tissue surrounding the molar #3 Cervical Lymphadenopathy - anterior- Neck: Positive: Supple Respiratory: Positive: Chest non-tender, Lungs clear, Normal breath sounds, No respiratory distress Cardiovascular: Positive: RRR, No Murmur, Pulses Normal, Brisk Capillary Refill Abdomen Description: Positive: Nontender, No Organomegaly, Soft. Negative: CVA Tenderness (R), CVA Tenderness (L) Bowel Sounds: Positive: Present Musculoskeletal: Positive: Strength Intact, ROM Intact, No Edema Neurological Exam: Normal Psychological Exam: Normal Skin Exam: Normal Triage Information Reviewed: Yes Vital Signs: Initial Vital Signs Temp 98.2 F 04/20/18 14:41 Pulse 58 04/20/18 14:41 Resp 18 04/20/18 14:41 BP 123/73 04/20/18 14:41 Pulse Ox 100 04/20/18 14:41 Dental Complaint Course/Dx - Course Course Of Treatment: 32 y/o female presents to the urgent care c/o Rt upper molar pain and mild swelling since last night. Pt states she has caries in that molar. She couldn't get an appt w/ her dentist today. pain is 8/10 w/ chewing radiating to the Rt ear. pt has not taking any medication to alleviate symptoms. Pt denies fever, trismus, GIRARD, URI, SOB, chest pain, abdominal pain, N/ v/D. Hx obtained. Pt with possible dental abscess on molar #3 on examination. Pt given viscous Lidocaine and Ibuprofen PO at the clinic to alleviate symptoms by the nurse. Pt tolerated well medication adn pain decrease. Pt Rx clindamycin PO and Ibuprofen PO and viscous Lidocaine for pain. Pt strongly advised to f/u with Dentist as soon as possible further evaluation and treatment. Pt understood and agreed with plan of care. Left the clinic ambulating. - Differential Dx/Diagnosis Differential Diagnosis/Dx: Dental Abscess, Dental Caries, Odontogenic Pain, Peridontic Disease, Peritonsillar Abcess Provider Diagnosis: Pain due to dental caries, Dental abscess Discharge - Sign-Out/Discharge Documenting (check all that apply): Patient Departure - d/c home All imaging exams completed and their final reports reviewed: No Studies - Discharge Plan Condition: Stable Disposition: HOME Prescriptions: Clindamycin Cap(NF) [Clindamycin Cap 300 mg Cap(NF)] 300 mg PO TID #30 cap Ibuprofen TAB* [Motrin TAB* 800 MG] 800 mg PO Q6H PRN #30 tab PRN Reason: dental pain Lidocaine 2% VISCOUS* [Xylocaine 2% Viscous*] 15 ml SWISH SPIT Q4H PRN #1 btl PRN Reason: dental pain Patient Education Materials: Dental Abscess (ED) Referrals: Higinio Valdez MD [Primary Care Provider] - 2 Days Additional Instructions: 1-Please take full course of antibiotic to avoid resistance. 2- Take Ibuprofen PO q6-8hrs prn as instructed after meals to alleviate pain and swelling. Also take viscous lidocaine as directed to alleviate pain. 3- F/u with your Dentist or Dental List provided as soon as possible for further treatment. 4- If symptoms do not improve or worsen please return to the urgent care or f/u with your PCP in 2-3 days for further evaluation and treatment - Billing Disposition and Condition Condition: STABLE Disposition: Home
[2018-04-20] MEDS ORDERED: Lidocaine 2% VISCOUS* 15 ML UDC SWISH SPIT ONE (15:37)
[2018-04-20] MEDS ORDERED: Ibuprofen TAB* 400 MG PO ONE (15:37)
== END 2018-04-20 15:49 | disposition home or self-care (01) ==
LOC: UCEAST 13:54
DX: K02.9 Dental caries, unspecified (principal); K04.7 Periapical abscess without sinus; F17.210 Nicotine dependence, cigarettes, uncomplicated
CPT/HCPCS: 99212; A9270-GY; G0463

== ENCOUNTER 2019-02-01 14:28 | Emergency (ER) | payer SELFPAY ==
[2019-02-01 16:02] LABS: ABS Basophils 0.1 10^3/ul (0-0.2); ABS Eosinophils 0.4 10^3/ul (0-0.6); ABS Monocytes 0.7 10^3/ul (0-0.8); Eosinophil % 4.4 %; Hematocrit 39 % (35-47); Hemoglobin 13.4 g/dL (12.0-16.0); Lymphocyte % 43.5 %; Mean Corpuscular HGB Conc 34 g/dL (31-36); Mean Corpuscular Hemoglobin 32 pg (27-31); Mean Corpuscular Volume 95 fL (80-97); Mean Platelet Volume 7.7 fL (7.4-10.4); Platelet Count 299 10^3/uL (150-450); Red Blood Count 4.15 10^6 /uL (3.70-4.87); Red Cell Distribution Width 13 % (10-15); White Blood Count 9.3 10^3/uL (3.5-10.8)
--- NOTE | 2019-02-01 16:16 | ED ---
Abdominal Pain/Female - HPI Summary HPI Summary: Pt is a 33 y/o F presenting to the ED with a chief complaint of R-sided abd pain right under her rib cage initially onset about 1 year ago. It rarely happened when it first came on, but in the past few months it has increased in frequency, and over the last week it has been happening every day. She last took IBU at 0900 on this date, 02/01/19. She reports decreased appetite, R flank pain, and some diarrhea this morning. She denies diaphoresis, SOB, bruising, rashes, fall, or trauma to the area. Patient reports mild nausea. No fever, chills or rash. Patient states is not related to food. Patient states is worse with movement. 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 Patient is not taken any analgesia. Sx worsened by movement and pressure on the R side. Sx alleviated by rest. Patient 's medications reviewed this visit - History of Current Complaint Chief Complaint: EDAbdPain Stated Complaint: RT SIDE/FLANK PAIN PER PT Time Seen by Provider: 02/01/19 15:40 Hx Obtained From: Patient ?: No Onset/Duration: Gradual Onset, Lasting Weeks, Still Present Timing: Weeks Severity Initially: Mild Severity Currently: Moderate Pain Intensity: 7 Pain Scale Used: 0-10 Numeric Location: Discrete At: RUQ Radiates: Yes Radiates to: Flank Aggravating Factor(s): Movement Alleviating Factor(s): Other: - rest Associated Signs and Symptoms: Positive: Decreased Appetite, Diarrhea. Negative : Diaphoresis Allergies/Adverse Reactions: Allergies Allergy/AdvReac Type Severity Reaction Status Date / Time No Known Allergies Allergy Verified 04/20/18 14:46 Home Medications: Home Medications Etonogestrel [Nexplanon] 68 mg SUBCUT ONCE 02/01/19 [History Confirmed 02/01/19] PMH/Surg Hx/FS Hx/Imm Hx Previously Healthy: Yes Endocrine/Hematology History: Denies: Hx Anticoagulant Therapy, Hx Diabetes, Hx Thyroid Disease Cardiovascular History: Denies: Hx Congestive Heart Failure, Hx Hypertension, Hx Pacemaker/ICD Respiratory History: Reports: Other Respiratory Problems/Disorders - 3 spont. pneumothorax w/chest tube Denies: Hx Asthma, Hx Chronic Obstructive Pulmonary Disease (COPD) GI History: Denies: Hx Ulcer History: Denies: Hx Dialysis, Hx Kidney Stones, Hx Renal Disease Sensory History: Reports: Hx Contacts or Glasses Denies: Hx Cataracts, Hx Hearing Aid Opthamlomology History: Reports: Hx Contacts or Glasses Denies: Hx Cataracts Neurological History: Denies: Hx Dementia, Hx Seizures Psychiatric History: Reports: Hx Anxiety, Hx Eating Disorder, Hx Depression, Hx Inpatient Treatment, Hx Community Mental Health Tx, Hx Substance Abuse Denies: Hx of Violent Episodes Against Others - Surgical History Surgery Procedure, Year, and Place: CHEST TUBE. appendectomy Hx Anesthesia Reactions: Yes - States woke up in the middle of getting wisdom teeth extracted - Immunization History Date of Tetanus Vaccine: utd Date of Influenza Vaccine: none Infectious Disease History: No Infectious Disease History: Denies: Hx Hepatitis, Hx Human Immunodeficiency Virus (HIV), Traveled Outside the [place] in Last 30 Days - Family History Known Family History: Positive: Hypertension, Diabetes Negative: Cardiac Disease, Blood Disorder - Social History Occupation: Employed Full-time - [employer] Alcohol Use: Occasionally Hx Substance Use: No Substance Use Type: Reports: None Substance Use Comment - Amount & Last Used: 4 years Hx Tobacco Use: Yes Smoking Status (MU): Light Every Day Tobacco Smoker Type: Cigarettes Amount Used/How Often: 3 cig/day Review of Systems Positive: Other - decreased appetite. Negative: Skin Diaphoresis Negative: Shortness Of Breath Positive: Abdominal Pain, Diarrhea Positive: flank pain Negative: Rash, Bruising All Other Systems Reviewed And Are Negative: Yes Physical Exam - Summary Physical Exam Summary: Vital Signs Reviewed: Yes A+Ox3, no distress Eyes: Conjunctiva Clear, YAYO. EOM intact and full ENT: Hearing grossly normal TM x 2 clear, mmoist, uvula midline, no exudate, no erythema Neck: Positive: Supple Respiratory: Positive: No respiratory distress, No accessory muscle use + CTA throughout no w/r, tenderness along right inferior ribs. Pain reproduced with range of motion and muscle strength against resistance. Cardiovascular: RRR nl s1, s2 no m/r CBT <2 sec abd soft + BS nd no guarding, no distension, mild right upper quadrant tenderness with direct palpation. No CVA. Musculoskeletal Exam: GARCIA x 4 without difficulty Strength Intact, ROM Intact Neurological: Positive: Alert, + sensation throughout Psychological: Positive: Normal Response To examiner Skin: Positive: no rash, no ecchymosis Triage Information Reviewed: Yes Vital Signs On Initial Exam: Initial Vitals Temp Pulse Resp BP Pulse Ox 97.6 F 60 16 153/92 100 02/01/19 14:29 02/01/19 14:29 02/01/19 14:29 02/01/19 14:29 02/01/19 14:29 Vital Signs Reviewed: Yes Diagnostics - Vital Signs Vital Signs Temp Pulse Resp BP Pulse Ox 02/01/19 15:29 97.9 F 65 16 119/71 100 02/01/19 14:29 97.6 F 60 16 153/92 100 - Laboratory Lab Results: Lab Results 02/01/19 Range/Units 15:53 WBC 9.3 (3.5-10.8) 10^3/uL RBC 4.15 (3.70-4.87) 10^6 /uL Hgb 13.4 (12.0-16.0) g/dL Hct 39 (35-47) % MCV 95 (80-97) fL MCH 32 H (27-31) pg MCHC 34 (31-36) g/dL RDW 13 (10-15) % Plt Count 299 (150-450) 10^3/uL MPV 7.7 (7.4-10.4) fL Neut % (Auto) 43.2 % Lymph % (Auto) 43.5 % [place] % (Auto) 7.8 % Eos % (Auto) 4.4 % Baso % (Auto) 1.1 % Absolute Neuts (auto) 4.0 (1.5-7.7) 10^3/ul Absolute Lymphs (auto) 4.0 (1.0-4.8) 10^3/ul Absolute Monos (auto) 0.7 (0-0.8) 10^3/ul Absolute Eos (auto) 0.4 (0-0.6) 10^3/ul Absolute Basos (auto) 0.1 (0-0.2) 10^3/ul Absolute Nucleated RBC 0.0 10^3/ul Nucleated RBC % 0.0 Result Diagrams: 02/01/19 15:53 02/01/19 15:53 Lab Statement: Any lab studies that have been ordered have been reviewed, and results considered in the medical decision making process. - Radiology CXR Radiology Interpretation Completed By: Radiologist Summary of Radiographic Findings: No active cardiopulmonary disease is noted. No pneumothorax is noted. ED physician has reviewed this report. - Ultrasound Abd US Ultrasound Interpretation Completed By: Radiologist Summary of Ultrasound Findings: Negative exam. ED physician has reviewed this report. Re-Evaluation - Re-Evaluation 1st re-eval Re-Evaluation Time: 17:42 Change: Improved Comment: Pt is feeling much better. I spoke with her about the plan for discharge and she is agreeable with going home with a Zofran prescription and dx of abd pain. We'll discharge home. Patient will be given work restrictions rest Motrin Tylenol. Her PCP. Patient comfortable agreement with plan. Abdominal Pain Fem Course/Dx - Course Course Of Treatment: Patient presents with intermittent but more persistent right upper quadrant pain. Patient states pain does not seem be related to food. Patient states is worse with movement. Patient denies vomiting but does endorse nausea. On exam vital signs are stable. Patient does have right upper quadrant pain with deep palpation as well as pain along the right ribs with direct palpation as well as activation with range of motion. We'll give patient analgesia and antiemetic IV fluids will check ultrasound and labs. Also check a urine. Patient states understanding agreement with plan. We'll reassess. Patient's blood pressure likely related to pain. Improved during hospital care. Recommend follow up PCP - Diagnoses Provider Diagnoses: Abdominal pain Discharge ED - Sign-Out/Discharge Documenting (check all that apply): Patient Departure Patient Received Moderate/Deep Sedation with Procedure: No - Discharge Plan Condition: Stable Disposition: HOME Prescriptions: Ondansetron ODT TAB* [Zofran 4 MG Odt TAB*] 4 mg PO Q4H PRN #10 tab.odt PRN Reason: Nausea Forms: *Work Release Referrals: Higinio Valdez MD [Primary Care Provider] - Additional Instructions: - Stay well hydrated. Drink plenty of non-alcoholic, non-caffinated beverages - It is recommended you eat small, frequent meals - avoid spicy foods, acidic foods, tomato based foods, fried food - Alternate ibuprofen (Motrin, Advil) 600mg and tylenol every 3 hours a needed for pain - Okay to take medication as prescribed for nausea - Contact your primary doctor on Monday to schedule a follow-up appointment next week. If your pain increases, you develop vomitin, fever or ANY other concerns it is recommended you return to the emergency department for further evaluation - Billing Disposition and Condition Condition: STABLE Disposition: Home - Attestation Statements Document Initiated by Scribe: Yes Documenting Scribe: Shirin Tejada Provider For Whom Chantal is Documenting (Include Credential): Krista Jones MD. Scribe Attestation: IShirin, scribed for Krista Jones MD. on 02/02/19 at 2126. Scribe Documentation Reviewed: Yes Provider Attestation: The documentation as recorded by the scribe, Shirin Tejada accurately reflects the service I personally performed and the decisions made by me, Krista Jones MD. Status of Scribe Document: Viewed
[2019-02-01 16:28] LABS: ALT 16 U/L (7-52); AST 22 U/L (13-39); Albumin 4.5 g/dL (3.2-5.2); Albumin/Globulin Ratio 1.7 (1-3); Alkaline Phosphatase 53 U/L (34-104); Anion Gap 4 mmol/L (2-11); BUN/Creatinine Ratio 15.1 (8-20); Blood Urea Nitrogen 13 mg/dL (6-24); CO2 Carbon Dioxide 29 mmol/L (22-32); Calcium 9.6 mg/dL (8.6-10.3); Chloride 104 mmol/L (101-111); Globulin 2.6 g/dL (2-4); Glucose 96 mg/dL (70-100); Potassium 4.1 mmol/L (3.5-5.0); Sodium 137 mmol/L (135-145); Total Protein 7.1 g/dL (6.4-8.9)
[2019-02-01 16:29] LABS: HCG Pregnancy < 0.60 mIU/mL
[2019-02-01] MEDS ORDERED: Ketorolac INJ* 30 MG/ML 1 ML VIAL IV PUSH ONE (16:37)
[2019-02-01] MEDS ORDERED: NS 0.9% 1000 ML** 1,000 ML IV ONE (16:37)
[2019-02-01] MEDS ORDERED: Ondansetron INJ* 2 MG/ML VIAL IV ONE (16:58)
[2019-02-01 18:21] VITALS: BP 132/64
== END 2019-02-01 18:15 | disposition home or self-care (01) ==
LOC: ED 14:28
DX: R10.9 Unspecified abdominal pain (principal); F17.210 Nicotine dependence, cigarettes, uncomplicated
CPT/HCPCS: 36415; 71046; 76705; 80053; 83690; 83735; 84702; 85025; 96361; 96374; 96375; 99283; J1885; J2405

== ENCOUNTER 2019-06-09 11:53 | Emergency (ER) | payer SELFPAY ==
[2019-06-09 12:08] VITALS: BP 126/87
--- NOTE | 2019-06-09 12:10 | UC ---
- HPI Summary HPI Summary: 33yo female presents with needle stick to tip of R thumb that happened at 0930 today. 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 She states after she checked it, she "fumbled the needle and it poked her thumb." Patient states she immediately washed it with soap and water. Patient states to her knowledge the patient does not have HIV or hepatitis but she does not have a definitive answer. She the facility is conducting lab work on the patient. She states she is UTD on tetanus and hep B vaccines. - History of Current Complaint Chief Complaint: UCBodyFluidExposure Stated Complaint: NEEDLE STICK - Other Discussed Post-Exposure Prophylaxis (PEP) for HIV: Declined Discussed PEP for Hepatitis-B: Declined PMH/Surg Hx/FS Hx/Imm Hx Previously Healthy: Yes Other History Of: Negative For: Anticoagulant Therapy - Surgical History Surgical History: Yes Surgery Procedure, Year, and Place: CHEST TUBE. appendectomy - Family History Known Family History: Positive: Hypertension, Diabetes Negative: Cardiac Disease, Blood Disorder - Social History Alcohol Use: Occasionally Substance Use Type: None Substance Use Comment - Amount & Last Used: 4 years Smoking Status (MU): Light Every Day Tobacco Smoker Type: Cigarettes Amount Used/How Often: 3 cig/day Household Exposure Type: Cigarettes - Immunization History Most Recent Influenza Vaccination: 6 years ago Most Recent Tetanus Shot: less then 5 years Most Recent Pneumonia Vaccination: none Review of Systems All Other Systems Reviewed And Are Negative: No Constitutional: Positive: Negative Skin: Positive: Other - needle stick R thumb Cardiovascular: Positive: Negative Gastrointestinal: Positive: Negative Musculoskeletal: Positive: Negative Neurological: Positive: Negative Physical Exam - Summary Physical Exam Summary: Vital Signs Reviewed: Yes A+Ox3, no distress Eyes: Conjunctiva Clear ENT: Hearing grossly normal neck: supple Respiratory: Positive: No respiratory distress, No accessory muscle use Cardiovascular: skin color reflect adequate perfusion Musculoskeletal Exam: GARCIA x 4 without difficulty Neurological: Positive: Alert, ambulatory without difficulty Psychological: Positive: Normal Response To Family Skin: Positive: no rash, no ecchymosis Triage Information Reviewed: Yes Vital Signs: Initial Vital Signs Temp 97.2 F 06/09/19 12:01 Pulse 72 06/09/19 12:01 Resp 12 06/09/19 12:01 BP 126/87 06/09/19 12:01 Pulse Ox 100 06/09/19 12:01 Needlestick Course/Dx - Course Course Of Treatment: Discussed HIV and hep B PEP with patient who verbally declined both. Patient verbally consented to baseline lab work for HIV, hep B and hep C. Instructed patient to contact with Dr. Pulido for further follow up. Instructed to follow up with her facility on the lab testing of the patient. Patient UTD on tetanus and declined booster. Patient voiced understanding and agreed with plan. - Diagnoses Provider Diagnoses: Needle stick injury of finger of right hand Discharge ED - Sign-Out/Discharge Documenting (check all that apply): Patient Departure All imaging exams completed and their final reports reviewed: No Studies - Discharge Plan Condition: Stable Disposition: HOME Patient Education Materials: Needle Stick Injuries (ED) Referrals: Tess GILL,Jamarcus Mi [Medical Doctor] - Higinio Valdez MD [Primary Care Provider] - Additional Instructions: You received baseline lab work for HIV, Hep B, and Hep C today. You will need to contact Dr. Pulido listed below for further follow up. - Billing Disposition and Condition Condition: STABLE Disposition: Home - Attestation Statements Provider Attestation: This patient was not seen by me. I was available for consult. Chart reviewed. RANJAN
[2019-06-09 14:42] LABS: Hepatitis C Antibody Negative (Negative)
--- NOTE | 2019-06-10 07:05 | UC ---
- Progress Note Progress Note: Hep C ab neg - no change ljj Course/Dx - Diagnoses Provider Diagnoses: Needle stick injury of finger of right hand Discharge ED - Sign-Out/Discharge Documenting (check all that apply): Post-Discharge Follow Up All imaging exams completed and their final reports reviewed: No Studies - Discharge Plan Condition: Stable Disposition: HOME Patient Education Materials: Needle Stick Injuries (ED) Referrals: Tess GILL,Jamarcus Mi [Medical Doctor] - Higinio Valdez MD [Primary Care Provider] - Additional Instructions: You received baseline lab work for HIV, Hep B, and Hep C today. You will need to contact Dr. Pulido listed below for further follow up. - Billing Disposition and Condition Condition: STABLE Disposition: Home
[2019-06-10 16:21] LABS: Hepatitis B Surface Antigen Nonreactive (Nonreactive)
[2019-06-10 16:38] LABS: Hepatitis B Surface Ab Not Immune (Immune)
[2019-06-10 16:39] LABS: HIV 4th Generation Nonreactive (Nonreactive)
--- NOTE | 2019-06-11 08:08 | UC ---
- Progress Note Progress Note: PLEASE CALL PATIENT. ADVISE HER THAT HER HEPATITIS B SURFACE ANTIBODY IS NEGATIVE INDICATING SHE IS NOT IMMUNE TO HEPATITIS B. FOLLOW-UP WITH HER PCP. Course/Dx - Diagnoses Provider Diagnoses: Needle stick injury of finger of right hand Discharge ED - Sign-Out/Discharge Documenting (check all that apply): Post-Discharge Follow Up All imaging exams completed and their final reports reviewed: No Studies - Discharge Plan Condition: Stable Disposition: HOME Patient Education Materials: Needle Stick Injuries (ED) Referrals: Tess GILL,Jamarcus Mi [Medical Doctor] - Higinio Valdez MD [Primary Care Provider] - Additional Instructions: You received baseline lab work for HIV, Hep B, and Hep C today. You will need to contact Dr. Pulido listed below for further follow up. - Billing Disposition and Condition Condition: STABLE Disposition: Home
== END 2019-06-09 12:30 | disposition home or self-care (01) ==
LOC: UCEAST 11:53
DX: S69.91XA Unspecified injury of right wrist, hand and finger(s), initial encounter (principal); F17.210 Nicotine dependence, cigarettes, uncomplicated; W46.0XXA Contact with hypodermic needle, initial encounter; Y92.9 Unspecified place or not applicable
CPT/HCPCS: 36415; 86706; 86803; 87340; 87389; 99211; G0463